=== PATIENT | female | born 1970 | race Caucasian/White ===

== ENCOUNTER 2017-05-14 15:49 | Inpatient (IN) | payer BC ==
[~2017-05-14 15:49] MED LIST: ISOVUE-370 76%-LOCM 1 ML ONE
[2017-05-14 16:31] LABS: #Basophils 0.1 thou/uL (0.0-0.2); #Eosinphils 0.1 thou/uL (0.0-0.7); #Lymphocytes 1.5 thou/uL (1.20-3.40); #Monocytes 0.9 thou/uL (0.11-0.59); #Neutrophils 10.5 thou/uL (1.40-6.50); %Basophils 0.4 % (0.0-1.0); %Lymphocytes 11.4 % (21.0-51.0); %Monocytes 7.1 % (0.0-10.0); Hematocrit 41.5 % (36.0-47.0); Mean Platelet Volume 8.8 fL (7.4-10.4); Red Blood Cell (RBC) Count 4.61 mill/uL (4.20-5.40); White Blood Cell (WBC) Count 13.2 thou/uL (4.8-10.8)
[2017-05-14 16:37] LABS: PTT 23.7 SEC (22.9-36.1); Prothrombin Time 13.7 SEC (12.0-14.7)
[2017-05-14 16:51] LABS: ALT (SGPT) 11 U/L (8-55); AST (SGOT) 19 U/L (5-34); Alkaline Phosphatase 120 U/L (40-150); Anion Gap 14 mmol/L (10-20); BUN (Urea Nitrogen) 12 mg/dL (7.0-18.7); Bilirubin, Total 0.4 mg/dL (0.2-1.2); CK (CPK) 104 U/L (29-168); Calc. Creatinine Clearance 0 mL/min (70-130); Carbon Dioxide 26 mmol/L (22-29); Chloride 102 mmol/L (98-107); Estimated GFR-MDRD 76; Globulin 3.5 g/dL (2.4-3.5); Lipase 40 U/L (8-78); Protein, Total 7.5 g/dL (6.0-8.3); Troponin I Less than 0.010 ng/mL (< 0.028)
--- NOTE | 2017-05-14 17:30 | RAD ---
CHEST 1 VIEW: Date: 05/14/17 HISTORY: Syncope. COMPARISON: Chest 1 view dated 08/01/14. FINDINGS: Lungs are clear. No pneumothorax or effusion. Cardiac silhouette and mediastinal contour within clarissa l limits. IMPRESSION: No acute intrathoracic abnormality. No significant change. POS: [facility]
[2017-05-14] MEDS ORDERED: Morphine 4 MG/ML VIAL ONE (17:32)
--- NOTE | 2017-05-14 18:00 | CT ---
CT OF ABDOMEN AND PELVIS PERFORMED WITH CONTRAST ENHANCEMENT: Date: 05/14/17 HISTORY: Abdominal pain with cramping. Red stools since Nick. FINDINGS: The lung bases are clear. The liver, spleen, and pancreas regions appear unremarkable. Gallbladder has been removed. Right and left adrenal glands, and right and left kidneys are normal in size. There is no significant periaortic or mesenteric adenopathy. There is no free fluid demonstrated. There are no signs of any bowel obstruction. I do not see any definite bowel well thickening. The colon is not distended. CT of pelvis was performed with contrast enhancement. There are some densities within the uterus most compatible with fibroids. There is some questionable slight enhancement to the wall of the sigmoid c olon and some portion of the descending colon. There is no pericolonic inflammatory change associated with this. No free fluid. Appendix region is unremarkable. IMPRESSION: 1. Questionable minimal wall enhancement to the descending and sigmoid colon. Some early changes of a colitis are difficult to totally exclude, although I do not see any other secondary signs. Clinical correlation would be suggested. 2. Fibromatous appear uterus. 3. Postop cholecystectomy change. [place] [facility] [place]
[2017-05-14] MEDS ORDERED: metroNIDAZOLE 500 MG/100 ML BAG ONE (19:49)
[2017-05-14] MEDS ORDERED: Sodium Chloride 0.45% 1,000 ML IV SCH (20:45)
[2017-05-14 21:12] VITALS: BMI 32.9
[2017-05-14] MEDS ORDERED: Acetaminophen 500 MG TAB PO PRN (22:23)
[2017-05-15 08:54] LABS: #Basophils 0.1 thou/uL (0.0-0.2); #Eosinphils 0.2 thou/uL (0.0-0.7); #Lymphocytes 1.6 thou/uL (1.20-3.40); #Monocytes 0.5 thou/uL (0.11-0.59); #Neutrophils 3.2 thou/uL (1.40-6.50); %Eosinophils 3.8 % (0.0-10.0); %Lymphocytes 28.5 % (21.0-51.0); %Monocytes 9.1 % (0.0-10.0); Hematocrit 35.7 % (36.0-47.0); Mean Platelet Volume 8.3 fL (7.4-10.4); Red Blood Cell (RBC) Count 3.94 mill/uL (4.20-5.40); White Blood Cell (WBC) Count 5.5 thou/uL (4.8-10.8)
[2017-05-15 08:59] LABS: Anion Gap 8 mmol/L (10-20); BUN (Urea Nitrogen) 12 mg/dL (7.0-18.7); Calc. Creatinine Clearance 137 mL/min (70-130); Calcium 8.5 mg/dL (7.8-10.44); Carbon Dioxide 29 mmol/L (22-29); Chloride 107 mmol/L (98-107); Estimated GFR-MDRD 87
[2017-05-15] MEDS ORDERED: FLU VACC QS2017-18 36 mo. & older 0.5 ML SYRINGE IM ONE (09:00)
--- NOTE | 2017-05-15 09:55 | HP ---
HISTORY OF PRESENT ILLNESS: This is a 47-year-old white female with a history of hypertension and ob esity who presents with syncope. The patient was doing well until approximately 3 days prior she beg an noticing blood in her stools. She normally has 1 bowel movement per week. However, over the past several days, she has had daily bowel movements with blood in her stool. Yesterday, she was having an urge to have a bowel movement. She went immediately to the bathroom and she felt sharp left lower quadrant abdominal pain. She sat on the toilet and then she states she passed out and awoke on the floor. This lasted for seconds. She was then brought to the emergency room for further evaluation. She states that her bowel movements have been associated with blood. This morning, she complains of minimal left lower quadrant abdominal pain. No other nausea, vomiting, chest pain, diarrhea. She s tates she does not have constipation either. PAST MEDICAL HISTORY: Hypertension, hyperlipidemia, obesity, anemia, depression, migraines, reflux, stress urinary incontinence, kidney stones. PAST SURGICAL HISTORY: C-sections x2; laparoscopic cholecystectomy; uterine ablation; laparoscopic s leeve gastrectomy, 12/2011; colonoscopy, 07/2014, which was normal by Dr. Dodge. FAMILY HISTORY: Parents alive, medical history unknown. No family history of heart disease, diabete s, hypertension that patient is aware of. SOCIAL HISTORY: She does not smoke. She drinks occasionally. She is , with 1 son and 1 trent ghter. She presently works for a [employer] company. MEDICATIONS: Effexor 150 mg daily, lisinopril 20 daily. ALLERGIES: SULFA. REVIEW OF SYSTEMS: As above. PHYSICAL EXAMINATION: VITAL SIGNS: Temperature 97.8, pulse 80, respirations 20, pulse ox 96, blood pressure 134/68. GENERAL: No acute distress at this time. HEENT: Clear. HEART: Regular rate and rhythm. LUNGS: Clear. ABDOMEN: Soft, nontender except for some mild right and left lower quadrant abdominal tenderness. LABORATORY DATA: White count 13.2, H&H is 13 and 41, platelets 226. INR 1.0. Electrolytes normal. Creatinine 0.8, BUN 12. Liver functions normal. Troponin one 0.010. X-RAY FINDINGS: Chest x-ray negative. ASSESSMENT: 1. Syncope, probable vasovagal episode. 2. Blood in the stool, etiology unknown. CAT scan shows slightly increased evidence for colitis. 3. Colitis. PLAN: 1. Consult GI. The patient may need a colonoscopy to rule out colitis, diverticulitis and bleeding. 2. Recommend the patient to increase her fiber in her diet. 3. Obtain CBC and BMP for today. 4. Start IV fluids. 5. Possibly can go home today if okay with Dr. Crespo.
[2017-05-15] MEDS: 1/2 NS w/KCL 20 mEq 1,000 ML IV SCH ×2 (11:02→23:07)
--- NOTE | 2017-05-15 17:03 | CON ---
DATE OF CONSULTATION: 05/15/2017 HISTORY OF PRESENT ILLNESS: The patient is a 47-year-old female who was in her normal stat e of health until a few days prior to admission when she passed some bright red blood per rectum. Sh zachery said initially it was mixed in the stool in a very small amount. She noticed it 2 days prior to ad mission and it became more and then on the day of admission it was a large amount of blood per rectum . She went to go to the bathroom and had a syncopal episode and woke up on the floor. She was havin g cramps during her bowel movements. She was not having nausea, vomiting. She denies any blood thin ners or NSAIDs. She denies prior GI bleeding. She takes something for constipation. She cannot rem ember the name. She takes it as needed. The patient had a colonoscopy by Dr. Dodge in 2014, which was reportedly normal. PAST MEDICAL HISTORY: Includes hypertension, reflux, urinary incontinence, kidney stones. PAST SURGICAL HISTORY: Includes two C-sections, cholecystectomy, sleeve gastrectomy. FAMILY HISTORY: Negative for GI or liver disease. SOCIAL HISTORY: She does not smoke, but vapes throughout the day. She does not drink alcohol. MEDICATIONS: Include Effexor and lisinopril. ALLERGIES: SULFA. REVIEW OF SYSTEMS: Constitutional: No fever or chills, no weight loss. Eyes: No blurred vision, double vision. ENT: No sore throat or earaches. Cardiovascular: No chest pain or palpitation. Pulmonary: No shortnes s of breath, cough or wheezing. Gastrointestinal: See above. Genitourinary: No hematuria or dysur ia. Musculoskeletal: No joint pain or muscle weakness. Skin: No rashes. Neurologic: No numbness or seizure activity. PHYSICAL EXAMINATION: GENERAL: Shows an overweight female in no acute distress. VITAL SIGNS: Temperature 98.6, pulse 71, respiratory rate 18, blood pressure 164/90. HEENT: Unremarkable. NECK: Supple. CHEST: Clear. CARDIOVASCULAR: Regular rate and rhythm. ABDOMEN: Soft, slightly tender in left lower quadrant without rebound or guarding. Bowel sounds are present and normoactive. RECTAL: Deferred. EXTREMITIES: Normal. NEUROLOGIC: Nonfocal. LABORATORY DATA: Shows a white blood cell count of 5.5, hemoglobin 11.5 with an admission hemoglobin of 13.5, MCV is 90.5. PT/INR is normal. Chemistries are normal. CT of the abdomen and pelvis shows questionable minimal wall enhancement in the descending and sigmoi d colon, fibromatosis of the uterus, and cholecystectomy. ASSESSMENT: 1. Lower gastrointestinal bleed -- may be some diverticular bleed or may be anal outlet bleeding. 2. Syncope -- suspect vasovagal episode. 3. Abnormal CT of the colon. RECOMMENDATIONS: Colonoscopy tomorrow.
[2017-05-15] MEDS ORDERED: GoLYTELY 4,000 ml Bottle PO SCH (18:00)
[2017-05-16 08:19] VITALS: BP 149/87; TEMP 98.2
--- NOTE | 2017-05-16 11:38 | PRG ---
DATE OF SERVICE: 05/16/2017 SUBJECTIVE: Patient doing well this morning. No complaints of abdominal pain. No complaints of any further rectal bleeding. OBJECTIVE: VITAL SIGNS: Temperature 97.8, pulse 72, respirations 18, pulse ox 97, blood pressure 145/81. HEART: Regular rate and rhythm. LUNGS: Clear. ABDOMEN: Soft, nontender. LABORATORY DATA: H&H 11 and 35 down from 13 and 41 from yesterday. Electrolytes normal. Creatinine 0.71, BUN 12. ASSESSMENT: 1. Blood in stool. Rule out diverticular versus cancer versus anal-outlet etiology. 2. Vasovagal episode. 3. Abnormal CT suggesting colitis. PLAN: 1. Patient is presently drinking GoLYTELY. She is scheduled for a colonoscopy this afternoon. If n ormal, possibly will go home. 2. Discussed fiber in the diet.
[2017-05-16] MEDS ORDERED: Promethazine HCl 25 MG/ML VIAL IM PRN (12:17)
[2017-05-16] MEDS ORDERED: Ondansetron HCl/PF 4 MG/2 ML Vial IVP PRN (12:17)
[2017-05-16] MEDS ORDERED: Promethazine HCl 25 MG/ML VIAL SLOW IVP PRN (12:17)
[2017-05-16] MEDS ORDERED: Lidocaine 1% PF 5 ML VIAL ONE (12:26)
[2017-05-16] MEDS ORDERED: Propofol 200 MG/20 ML VIAL ONE (12:26)
--- NOTE | 2017-05-16 16:35 | OP ---
PREOPERATIVE DIAGNOSIS: Gastrointestinal bleeding. PROCEDURE: After informed consent was obtained, the patient was placed in the left lateral decubitus position. Anesthesia was administered per the Anesthesia Department. Forward-viewing endoscope was inserted into the rectum after perianal inspection and rectal exam were normal. It was passed to th e cecum with ease. The cecum, ileocecal valve, and appendiceal orifice were normal. The prep was ex cellent. The ascending and transverse were normal. Beginning at the splenic flexure involving the d escending there was some mild colitis consistent with ischemic colitis. Biopsies were taken. In the sigmoid, a few diverticula were noted. No blood was seen in the lower GI tract. Retroflexion in th e rectum showed internal hemorrhoids. ASSESSMENT: 1. Descending colitis, mild - probable ischemic colitis; status post biopsy. 2. Sigmoid diverticulosis coli. 3. Internal hemorrhoids. RECOMMENDATIONS: 1. Await histopathology. 2. The patient is stable for discharge from gastrointestinal standpoint.
[2017-05-16] MEDS: 1/2 NS w/KCL 20 mEq 1,000 ML IV SCH (17:11)
--- NOTE | 2017-05-17 13:15 | DIS ---
DATE OF ADMISSION: 05/15/2017 DATE OF DISCHARGE: 05/16/2017 DISCHARGE DIAGNOSES: 1. Ischemic colitis. 2. Vasovagal episode. 4. Hematochezia. CONSULTANTS: Dr. Crespo. PROCEDURE: Colonoscopy revealing possible ischemic colitis. DISCHARGE MEDICATIONS: Effexor 150 mg q. day, lisinopril 20 q. day. BRIEF HISTORY: This is a 47-year-old white female with history of hypertension and obesity, who pres ented with syncope. She was doing well. Approximately 3 days prior to admission, she noted some blo od in her stool. She normally has 1 bowel movement per week; however, over the past few days, she díaz s had daily bowel movements. She went to the bathroom and felt sharp left lower quadrant pain. She s at on the toilet and then she states she passed out. This lasted for a few seconds. She was then br ought to the emergency room. HOSPITAL COURSE: The patient has done well. She has had no blood in her stools visible. Dr. Crespo w as consulted. She underwent a colonoscopy which revealed possible ischemic colitis. Biopsies are pe nding. The patient is to be discharged and follow up with Dr. Crespo in the next week and with myself in the next week. LABORATORY DATA: White count 5.5, H&H 11 and 35. INR 1.0. Electrolytes are normal. Creatinine 0.7 1, BUN 12, blood sugar 87.
== END 2017-05-16 16:15 | disposition home or self-care (01) | DRG 395 ==
LOC: ERS 15:49 → 2NO 20:46 → T4-B 05-15 10:35
PROVIDERS: ADMIT Family Medicine; ATTEND Family Medicine
PROC: 0DBG8ZX Excision of Left Large Intestine, Via Natural or Artificial Opening Endoscopic, Diagnostic (ICD-10-PCS; principal; 2017-05-16)
DX: K55.9 Vascular disorder of intestine, unspecified (principal); I10 Essential (primary) hypertension; E78.5 Hyperlipidemia, unspecified; K57.30 Diverticulosis of large intestine without perforation or abscess without bleeding; R55 Syncope and collapse; K64.8 Other hemorrhoids; Z87.442 Personal history of urinary calculi; Z88.2 Allergy status to sulfonamides
CPT/HCPCS: 36415; 71010; 74177; 80048; 80053; 82274; 82553; 83690; 84484; 85025; 85610; 85652; 85730; 86140; 88305; 93005; 94760; 96365; 96375; A4216; J2001; J2270; J2704

== ENCOUNTER 2018-01-04 11:25 | Outpatient (CLI) | payer BC | END 2018-01-04 11:26 | disposition home or self-care (01) | LOC: BICCT 11:25 | PROVIDERS: ATTEND Family Medicine | DX: T07.XXXA Unspecified multiple injuries, initial encounter (principal); E07.89 Other specified disorders of thyroid | CPT/HCPCS: 70490 ==

== ENCOUNTER 2019-07-24 14:05 | Outpatient (CLI) | payer BC | END 2019-07-24 14:06 | disposition home or self-care (01) | LOC: ULT 14:05 | PROVIDERS: ATTEND Family Medicine | DX: R07.9 Chest pain, unspecified (principal); I07.1 Rheumatic tricuspid insufficiency; I25.3 Aneurysm of heart | CPT/HCPCS: 93306 ==

== ENCOUNTER 2019-07-29 08:55 | Outpatient (CLI) | payer BC ==
[2019-07-29] MEDS ORDERED: ADENOSINE 60 MG/20 ML VIAL ONE (12:13)
--- NOTE | 2019-07-30 12:38 | NM ---
EXAM: CARDIAC SPECT HISTORY: Chest pain, hypertension TECHNIQUE: A myocardial perfusion scan was performed using the single isotope 1 day protocol with devon hnetium 99m sestamibi. [10 mCi] was injected intravenously for the rest exam followed by 30 mCi for the stress study. Pharmacologic stress with adenosine was monitored and interpreted by Luis Manuel Torres, nurse practitioner FINDINGS: Homogeneous tracer distribution is seen in the myocardial segments on stress and rest image s without fixed or reversible defects. Gated SPECT LVEF: 80% Wall motion exam: Normal IMPRESSION: Normal myocardial perfusion scan
== END 2019-07-29 08:56 | disposition home or self-care (01) ==
LOC: NM 08:55
PROVIDERS: ATTEND Family Medicine
DX: R07.9 Chest pain, unspecified (principal)
CPT/HCPCS: 78452; 93017; A9500; J0153

== ENCOUNTER 2024-04-18 11:04 | Outpatient (CLI) | payer BC | END 2024-04-18 11:05 | disposition home or self-care (01) | LOC: SCSMRI 11:04 | PROVIDERS: ATTEND Family Medicine | DX: R25.1 Tremor, unspecified (principal); G93.9 Disorder of brain, unspecified | CPT/HCPCS: 36415; 70553; 76376 ==

== ENCOUNTER 2024-06-25 11:06 | Emergency (ER) | payer BC ==
[2024-06-25] MEDS ORDERED: Tenecteplase 50 MG ONE (11:50)
[2024-06-25] MEDS ORDERED: Midazolam HCl 2 mg/2 ml Vial ONE (12:15)
[2024-06-25 12:48] LABS: #Basophils 0.08 10x3/uL (0.0-0.2); %Basophils 1.2 % (0.0-1.0); %Eosinophils 4.2 % (0.0-10.0); %Lymphocytes 33.4 % (21.0-51.0); %Monocytes 8.6 % (0.0-10.0); %Neutrophils 52.5 % (42.0-75.0); Hematocrit 35.3 % (36.0-47.0); Mean Corpuscular Hemoglobin 29.1 pg (27.0-31.0); Mean Corpuscular Volume 85.5 fL (78.0-98.0); Mean Platelet Volume 10.1 fL (7.4-10.4); Platelet Count 224 10x3/uL (130-400); RBC Distribution Width 13.3 % (11.5-14.5); Red Blood Cell (RBC) Count 4.13 mill/uL (4.20-5.40)
[2024-06-25 12:59] LABS: ALT (SGPT) 14 U/L (8-55); AST (SGOT) 17 U/L (5-34); Albumin 3.2 g/dL (3.5-5.0); Alkaline Phosphatase 87 U/L (40-110); Anion Gap 12 mmol/L (10-20); BUN (Urea Nitrogen) 14 mg/dL (9.8-20.1); Bilirubin, Total 0.3 mg/dL (0.2-1.2); Calc. Creatinine Clearance 0 mL/min (70-130); Calcium 8.4 mg/dL (7.8-10.44); Carbon Dioxide 25 mmol/L (22-29); Chloride 107 mmol/L (98-107); Estimated GFR 96; Globulin 3.2 g/dL (2.4-3.5); Glucose 94 mg/dL (70-105); Potassium 3.6 mmol/L (3.5-5.1); Protein, Total 6.4 g/dL (6.0-8.3); Sodium 140 mmol/L (136-145)
[2024-06-25 13:02] LABS: PTT 25.9 sec (22.9-36.1); Prothrombin Time 13.4 sec (12.0-14.7)
[2024-06-25 13:04] LABS: Troponin I Less than 0.010 ng/mL (< 0.028)
[2024-06-25] MEDS ORDERED: Iopamidol-370 76% 500 ML MDV (1 ML CHARGE) ONE (14:00)
== END 2024-06-25 14:05 | disposition short-term general hospital (02) ==
LOC: ERS 11:06
DX: I63.9 Cerebral infarction, unspecified (principal); I10 Essential (primary) hypertension; Z92.82 Status post administration of tPA (rtPA) in a different facility within the last 24 hours prior to admission to current facility; Z87.891 Personal history of nicotine dependence
CPT/HCPCS: 36416; 51702; 70450; 70496; 70498; 71045; 80053; 84484; 85025; 85610; 85730; 93005; 94760; 96374; 96375; J2250; J3101; Q9967